=== PATIENT | female | born 1995 | race Caucasian/White ===

== ENCOUNTER 2025-03-11 12:45 | Inpatient (IN) | payer MEDICAID, SELFPAY ==
[2025-03-11] MEDS ORDERED: hydrALAZINE 20 MG/ML VIAL SLOW IVP PRN ×2 (13:20→17:00)
[2025-03-11 13:40] VITALS: BMI 22.9
[2025-03-11] MEDS ORDERED: Acetaminophen 500 MG TAB PO PRN (15:29)
[2025-03-11] MEDS ORDERED: Carboprost 250 MCG/ML AMP IM PRN (17:00)
[2025-03-11] MEDS ORDERED: Lidocaine 1% (PF) 30 ML VIAL SC PRN (17:00)
[2025-03-11] MEDS ORDERED: Bupivacaine HCl 0.5%/Epinephrine 1:200,000/PF 30 ml Vial ONE (17:00)
[2025-03-11] MEDS ORDERED: Tranexamic Acid 1,000 MG/10 ML VIAL IVP PRN (17:00)
[2025-03-11] MEDS ORDERED: Bupivacaine/Epinephrine 0.25% 30 ML VIAL ONE (17:00)
[2025-03-11] MEDS ORDERED: Diphenoxylate HCl/Atropine Tablet PO PRN ×2 (17:00)
[2025-03-11] MEDS ORDERED: Ondansetron PF 4 MG/2 ML Vial IVP PRN (17:00)
[2025-03-11] MEDS ORDERED: Ibuprofen 800 MG TAB PO PRN (17:00)
[2025-03-11] MEDS ORDERED: Oxytocin 30 units/NS 500 ML 500 ML IV SCH ×2 (17:00)
[2025-03-11] MEDS ORDERED: Methylergonovine 0.2 MG/ML VIAL IM PRN (17:00)
[2025-03-11 18:09] LABS: Hematocrit 41.0 % (34.9-44.5); Hemoglobin 14.1 g/dL (12.0-15.5); Mean Corpuscular Hemoglobin 30.5 pg (27.0-33.0); Mean Corpuscular Volume 88.6 fL (81.6-98.3); Platelet Count 271 10x3/uL (150-450); Red Blood Cell (RBC) Count 4.63 10x6/uL (3.90-5.03); White Blood Cell (WBC) Count 12.04 10x3/uL (3.5-10.5)
[2025-03-11] MEDS ORDERED: diphenhydrAMINE 50 MG/ML VIAL IVP PRN (18:22)
[2025-03-11] MEDS ORDERED: Acetaminophen 325 MG TAB PO PRN (18:22)
[2025-03-11] MEDS ORDERED: Communication Order-Pharmacy FS SCH (18:30)
[2025-03-11] MEDS ORDERED: fentaNYL 2 mcg/Ropivacaine 0.2% Epidural 100 ML CADD EPIDURAL SCH (18:30)
[2025-03-11] MEDS: fentaNYL/Ropivacaine Epidural 100 ML ONE (18:41)
[2025-03-11 19:18] LABS: Hep B Surf Ag - L&D Non-Reactive S/CO (NonReactive)
[2025-03-11 19:20] LABS: Syphilis Antibody Index 0.08 S/CO (<1.00 Non-Reactive)
[2025-03-11] MEDS: Ondansetron PF 4 MG/2 ML Vial IVP PRN (22:25)
[2025-03-12] MEDS ORDERED: Bicitra 30 ML UDCUP PO PRN (02:32)
[2025-03-12] MEDS ORDERED: Famotidine/PF 20 mg/2ml Vial SLOW IVP PRN (02:32)
[2025-03-12] MEDS: CEFAZOLIN 2 GM VIAL ONE (02:39)
[2025-03-12] MEDS ORDERED: Azithromycin 500 MG in Sodium Chloride 0.9% 250 ML 250 ML IVPB SCH (02:45)
[2025-03-12 03:21] LABS: Analyzer IN Cardio CS NICU; RapidComm Collect By RN
[2025-03-12 03:24] LABS: Analyzer IN Cardio CS NICU; RapidComm Collect By RN; pH (Cord, venous) 7.343 (7.250-7.350)
[2025-03-12] MEDS ORDERED: Acetaminophen/Codeine 30-300mg Tablet PO PRN (03:33)
[2025-03-12] MEDS ORDERED: Bisacodyl 10 MG SUPP PR PRN (03:33)
[2025-03-12] MEDS ORDERED: hydrALAZINE 20 MG/ML VIAL SLOW IVP PRN (03:33)
[2025-03-12] MEDS ORDERED: diphenhydrAMINE 50 MG/ML VIAL IVP PRN (03:39)
[2025-03-12] MEDS ORDERED: Meperidine HCl/PF 25 MG (1 mL) VIAL SLOW IVP PRN (03:39)
[2025-03-12] MEDS ORDERED: Ondansetron PF 4 MG/2 ML Vial IVP PRN ×2 (03:39)
[2025-03-12] MEDS ORDERED: Communication Order-Pharmacy FS SCH (03:45)
[2025-03-12] MEDS: Ketorolac Tromethamine 30 MG (1 mL) VIAL IVP SCH (05:57)
[2025-03-12] MEDS: Oxytocin 10 UNITS/ML VIAL ONE (07:00)
[2025-03-12] MEDS: Azithromycin 500 MG VIAL ONE (07:00)
[2025-03-12] MEDS: Ketorolac Tromethamine 30 MG (1 mL) VIAL IVP PRN (11:29)
[2025-03-12] MEDS: Acetaminophen/Codeine 30-300mg Tablet PO PRN (16:12)
[2025-03-13 03:40] LABS: Hematocrit 33.0 % (34.9-44.5); Hemoglobin 11.0 g/dL (12.0-15.5); Mean Corpuscular Hemoglobin 29.9 pg (27.0-33.0); Mean Corpuscular Volume 89.7 fL (81.6-98.3); Platelet Count 215 10x3/uL (150-450); Red Blood Cell (RBC) Count 3.68 10x6/uL (3.90-5.03); White Blood Cell (WBC) Count 11.94 10x3/uL (3.5-10.5)
[2025-03-13] MEDS ORDERED: HYDROcodone/Acetaminophen 5/325 mg Tablet PO PRN (09:47)
[2025-03-13] MEDS: HYDROcodone/Acetaminophen 5/325 mg Tablet PO PRN (14:39)
[2025-03-13] MEDS: Simethicone Chewable 80 MG TAB PO PRN (14:40)
[2025-03-13] MEDS: Ibuprofen 800 MG TAB PO SCH (21:21)
[2025-03-14 07:39] VITALS: BP 101/70; TEMP 97.8
== END 2025-03-14 13:10 | disposition home or self-care (01) | DRG 788 ==
LOC: CSHLD/OP 12:45 → CSHLD 15:24 → CSHPP 03-12 06:15
PROVIDERS: ADMIT Family Medicine; ATTEND Family Medicine
PROC: 10907ZC Drainage of Amniotic Fluid, Therapeutic from Products of Conception, Via Natural or Artificial Opening (ICD-10-PCS; 2025-03-11)
PROC: 4A1HXCZ Monitoring of Products of Conception, Cardiac Rate, External Approach (ICD-10-PCS; 2025-03-11)
PROC: 10D00Z1 Extraction of Products of Conception, Low, Open Approach (ICD-10-PCS; principal; 2025-03-12)
PROC: 3E0E3GC Introduction of Other Therapeutic Substance into Products of Conception, Percutaneous Approach (ICD-10-PCS; 2025-03-12)
PROC: 10H07YZ Insertion of Other Device into Products of Conception, Via Natural or Artificial Opening (ICD-10-PCS; 2025-03-12)
PROC: 3E03329 Introduction of Other Anti-infective into Peripheral Vein, Percutaneous Approach (ICD-10-PCS; 2025-03-12)
DX: O36.8330 Maternal care for abnormalities of the fetal heart rate or rhythm, third trimester, not applicable or unspecified (principal); O76 Abnormality in fetal heart rate and rhythm complicating labor and delivery; Z3A.38 38 weeks gestation of pregnancy; Z37.0 Single live birth; O69.81X0 Labor and delivery complicated by cord around neck, without compression, not applicable or unspecified; Z79.899 Other long term (current) drug therapy
CPT/HCPCS: 36415; 51702; 82805; 85027; 86780; 86850; 86900; 86901; 87340; 99285; J1885; J2274; J2405; J2550; J2590; J3010; J3105